=== PATIENT | female | born 1975 | race African-American/Black ===

== ENCOUNTER 2017-06-30 07:00 | Inpatient (IN) | payer BC ==
[2017-06-29 10:42] VITALS: BMI 54.5
[2017-06-30] MEDS ORDERED: PROPOFOL 20 ML ONE (08:00)
[2017-06-30] MEDS ORDERED: ROCURONIUM BROMIDE 50 MG/5 ML VIAL ONE ×2 (08:00→09:54)
[2017-06-30] MEDS ORDERED: fentaNYL CITRATE 250 MCG/5 ML VIAL ONE (08:02)
[2017-06-30] MEDS ORDERED: MIDAZOLAM HCL 2 MG/2 ML SINGLE DOSE VIAL ONE ×3 (08:02→08:35)
[2017-06-30] MEDS ORDERED: LIDOCAINE HCL/PF 2% SDV 5ML VIAL ONE (08:03)
[2017-06-30] MEDS ORDERED: KETOROLAC TROMETHAMINE 30 MG/1 ML VIAL ONE (08:04)
[2017-06-30] MEDS ORDERED: LIDOCAINE HCL 2% JELLY (5 ML/TUBE) ONE (08:04)
[2017-06-30] MEDS ORDERED: DEXAMETHASONE SOD PHOSPHATE 4 MG/1 ML VIAL ONE (08:04)
[2017-06-30] MEDS ORDERED: ONDANSETRON 4 MG/2 ML VIAL ONE ×2 (08:04→14:35)
[2017-06-30] MEDS ORDERED: ROPIVACAINE HCL 0.5% 30ML VIAL ONE (08:34)
[2017-06-30] MEDS ORDERED: DEXAMETHASONE SOD PHOSPHATE/PF 10 MG/ML SDV ONE (08:34)
--- NOTE | 2017-06-30 09:17 | HP ---
Past Medical History - Primary Care Physician PCP:: Eric Thakur - Admission Chief Complaint: pelvic pain, metrorrhagia, fibroid uterus History of Present Illness: 43 yo f with previous hx of tubo ovarian abscess , fibroid uterus with hx of chronic pelvic pain and metrorrhagia , requesting hysterectomy, possible BSO, risks of procedure discussed with patient in detail, ulternatives and no treatmene discussed in detail History Source: Patient Limitations to Obtaining History: No Limitations - Past Medical History Reproductive: Yes: Fibroids, PID, Polycystic Ovary Syndrome ...: 0 ...Para: 0 Heme/Onc: Yes: Anemia Endocrine: Yes: Diabetes Mellitus (on metformin) - Past Surgical History Hx Myomectomy: No Hx Transabdominal Cerclage: No - Smoking History Smoking history: Never smoked Have you smoked in the past 12 months: No - Alcohol/Substance Use Hx Alcohol Use: Yes (WINE) - Social History History of Recent Travel: No Home Medications - Allergies Allergies/Adverse Reactions: Allergies Allergy/AdvReac Type Severity Reaction Status Date / Time Penicillins Allergy Verified 04/30/14 13:32 UNSURE OTHER ANTIBIOTIC ? Allergy Intermediate PAIN AND Uncoded 06/29/17 10:45 FEVER - Home Medications Home Medications: Ambulatory Orders Metformin HCl [Glucophage -] 500 mg PO DAILY 04/30/14 Aspirin [ASA -] 325 mg PO PRN 06/29/17 Multivitamin [Poly-Vitamin] 1 each PO DAILY 06/29/17 Acetaminophen [Tylenol -] 650 mg PO Q4H 06/30/17 Review of Systems - Review of Systems Constitutional: reports: Weakness Eyes: reports: No Symptoms HENT: reports: No Symptoms Neck: reports: No Symptoms Cardiovascular: reports: No Symptoms Respiratory: reports: No Symptoms Gastrointestinal: reports: Abdominal Pain, Bloating Genitourinary: reports: Vaginal Bleeding Breasts: reports: No Symptoms Reported Musculoskeletal: reports: No Symptoms Integumentary: reports: No Symptoms Neurological: reports: No Symptoms Endocrine: reports: No Symptoms Hematology/Lymphatic: reports: No Symptoms Psychiatric: reports: No Symptoms 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 Vital Signs: Vital Signs Temperature 97.7 F 06/30/17 07:39 Pulse Rate 90 06/30/17 07:39 Respiratory Rate 20 06/30/17 07:39 Blood Pressure 139/94 06/30/17 07:39 O2 Sat by Pulse Oximetry (%) 100 06/30/17 07:39 Constitutional: Yes: Obese Eyes: Yes: WNL HENT: Yes: WNL Neck: Yes: WNL Cardiovascular: Yes: WNL Respiratory: Yes: WNL Gastrointestinal: Yes: Soft Renal/: Yes: WNL Pelvis: Yes: Mass External Genitalia: Yes: Normal Vaginal Exam: Yes: Normal Cervix: Yes: Normal Uterus: Yes: Enlarged, Lumpy, Tender Adnexa: Tender: Left, Right Breast(s): Yes: WNL Musculoskeletal: Yes: WNL Extremities: Yes: WNL Edema: No Integumentary: Yes: WNL Neurological: Yes: WNL ...Motor Strength: WNL Psychiatric: Yes: WNL Problem List - Problem (1) Pelvic pain Code(s): R10.2 - PELVIC AND PERINEAL PAIN (2) Metrorrhagia Code(s): N92.1 - EXCESSIVE AND FREQUENT MENSTRUATION WITH IRREGULAR CYCLE (3) Anemia Code(s): D64.9 - ANEMIA, UNSPECIFIED Qualifiers: Anemia type: iron deficiency Assessment/Plan admit for supracervical abdominal hysterectomy , possible BSO, rba discussed
[2017-06-30] MEDS ORDERED: ceFAZolin SODIUM 1 GM VIAL IVPB ONE ×2 (09:23→12:47)
[2017-06-30] MEDS ORDERED: LABETALOL HCL 5 MG/1 ML (100MG/20 ML VIAL) ONE (09:56)
[2017-06-30] MEDS ORDERED: DESFLURANE GAS 240 ML BOTTLE IH ONE (10:01)
[2017-06-30] MEDS ORDERED: TRANEXAMIC ACID 1000 MG/10 ML VIAL ONE (10:03)
[2017-06-30] MEDS ORDERED: METHYLENE BLUE 1% 10 MG/1 ML VIAL NR ONE (11:15)
[2017-06-30] MEDS ORDERED: ceFAZolin SODIUM 1 GM VIAL ONE (12:43)
[2017-06-30] MEDS ORDERED: SODIUM CHLORIDE 0.9% P/F 10 ML VIAL IJ ONE (12:43)
[2017-06-30] MEDS ORDERED: BACITRACIN 15 GM TUBE TOPICAL OINTMENT ONE (12:55)
[2017-06-30] MEDS ORDERED: BACITRACIN 15 GM TUBE TOPICAL OINTMENT TP ONE (13:00)
[2017-06-30] MEDS ORDERED: IBUPROFEN 600 MG TABLET (FP) PO PRN (13:09)
[2017-06-30] MEDS ORDERED: NEOSTIGMINE METHYLSULFATE 0.5 MG/ML - 10 ML MDV ONE (13:31)
[2017-06-30] MEDS: ELECTROLYTE-148 SOLN 1,000 ML IV SCH (13:50)
[2017-06-30] MEDS ORDERED: oxyCODONE HCL 5 MG TABLET PO PRN (14:05)
[2017-06-30] MEDS ORDERED: LACTATED RINGERS SOLUTION 1,000 ML IV SCH (14:15)
[2017-06-30] MEDS: IBUPROFEN 800 MG/8 ML IJ IVPB PRN ×2 (14:15→19:54)
[2017-06-30 14:29] LABS: MCH 26.2 pg (25.7-33.7); MCHC 31.5 g/dl (32.0-36.0); MEAN PLT VOLUME 8.3 fl (7.5-11.1); PLATELET COUNT 377 K/MM3 (134-434); RDW 15.1 % (11.6-15.6); WHITE BLOOD COUNT 16.5 K/mm3 (4.0-10.0)
[2017-06-30] MEDS: ONDANSETRON 4 MG/2 ML VIAL IVPUSH PRN ×2 (14:36→21:11)
--- NOTE | 2017-06-30 14:38 | PROC ---
Procedure Note Procedure: cystoscopy and bilateral retrograde pyelogram are normal
[2017-06-30 14:50] LABS: ANION GAP 4 (8-16); CALCIUM 7.9 mg/dL (8.5-10.1); CO2 27 mmol/L (21-32); CREATININE 0.7 mg/dL (0.55-1.02); GLUCOSE,RANDOM 178 mg/dL (74-106)
--- NOTE | 2017-06-30 14:59 | OP ---
DATE OF OPERATION: 06/30/2017 PREOPERATIVE DIAGNOSIS: Abdominal hysterectomy, concern about urinary injury. POSTOPERATIVE DIAGNOSIS: No evidence of urinary injury. PROCEDURE: Cystoscopy, bilateral retrograde pyelogram. SURGEON: Josué Lauren MD ANESTHESIA: General, Michael Joshi MD. DRAINS: Simeon catheter. PREOPERATIVE INDICATIONS: The patient is a 42-year-old female who underwent an abdominal hysterectomy. There were multiple adhesions throughout the abdomen. General surgical consultation was required. The consumer marketing specialist requested urology evaluation as well for fear of damage to the ureters or the bladder. DESCRIPTION OF OPERATION: After the general procedure was finished, the patient was placed in a frog-leg position. Groin was prepped and draped sterilely, and cystoscopy was performed. The bladder itself appeared to be normal and intact. There was an air bubble as expected at top of the bladder with infusion of fluid through the scope. The bladder held the fluid well. Again, no evidence of any sutures or perforation or leakage. No tumors or stones were seen either. The ureteral orifices were visualized. An open-ended catheter was placed up the left ureter. A retrograde pyelogram was performed which revealed a normal system with no obstruction and no extravasation. On the right side, this was done as well, and again, similarly, a normal system with no evidence of hydronephrosis or obstruction or extravasation was seen. The study was ultimately normal. Scope was removed, and a Simeon catheter was left in place. JOSUÉ LAUREN M.D. [id number]
--- NOTE | 2017-06-30 15:08 | OP ---
DATE OF OPERATION: 06/30/2017 PREOPERATIVE DIAGNOSIS: Extensive endometriosis, tubo-ovarian abscess with ovarian cyst, extensive lysis of adhesions of the tubes and ovaries to sigmoid colon and rectum as well as to the retroperitoneum, bladder, and appendix. SURGEON: Lorene Bean MD VENDOR ANALYST: Eric Thakur MD ANESTHESIA: General anesthesia. OPERATIVE DESCRIPTION: I was called in for consultation intraoperatively, by Dr. Thakur while he was doing hysterectomy for severe endometriosis and tubo- ovarian abscesses and fibroid uterus. When I was involved the abdomen was open. The findings were explained to me by Celeste Ellis , and the anatomy oriented. On examination, there were extensive adhesions of the sigmoid colon to the posterior aspect of the pelvic organs, in the pelvis. The proximal rectum was also densely adherent to the pelvic organs. There were large ovarian cysts above, anterior and lateral to this. The bilateral tubo-ovarian masses were adherent also to the lateral abdominal wall, and retroperitoneum. There were adhesions to the bladder as well. The urinary bladder was lysed and retracted anteriorly. The rectosigmoid was densely adherent to the retroperitoneum as well as to the posterior aspect of the uterus and the tubo-ovarian cyst. This was carefully lysed using sharp and blunt dissection, as well as using electrocautery,and the LigaSure. The sigmoid colon was then freed from the pelvic organs and retracted cephalad. Further, the peritoneal and fibrous peel, was lifted off the tuboovarian inflammatory mass, starting from the right ovary, and this was carefully mobilized medially, towards the uterus. There were dense adhesions of the tubes and ovaries to the lateral and posterior abdominal wall peritoneum. This was lysed with care, not to damage any important structures. Ureters were identified and left intact. Methylene blue was injected during the procedure, which was evident from the color of the urine, in the bladder. There was a long thin strand of fibrotic cord like structure,which was adherent to the ovary. This was later found to be the tip of the appendix. An appendectomy was later performed. After mobilizing the right ovary and the tubes all the way down, behind the uterus and the cervix, attention was carried to the left ovary and tube, which was also very distended and thick walled. It was also adherent to the lateral pelvic wall as well as the retroperitoneum. This was carefully lysed, and from its surrounding structures and attachments, again with sharp and blunt dissection, as well as using the LigaSure and the electrocautery. All of the tubo-ovarian structures as well as the infundibulum and the tubes were brought to the center of the abdomen, where the uterus and the cervix was then dissected, from adjacent organs, as well as the rectum posteriorly and the bladder anteriorly. The hysterectomy was then performed by Dr. Thakur. At the completion, it was noted that the little thin strand that was connected to the ovary was the appendix. An appendectomy was then performed by placing 2 ligatures of 2 0 viryl, at the base of the appendix and dividing the appendix, distal to the ligature. The specimen was sent to Pathology. The cecum, terminal ileum, descending colon, and sigmoid colon were all normal. Hemostasis was satisfactory at the completion of the procedure. The rest of the procedure including closure of the abdomen was done by Dr. Thakur. The urologist was then called to do cystoscopy and retrograde ureterography. LORENE BEAN M.D. CC: MD MADELINE [id number] MTDD
[2017-06-30] MEDS: oxyCODONE HCL 5 MG TABLET PO PRN (17:15)
--- NOTE | 2017-06-30 17:45 | OP ---
Operative Note - Note: Operative Date: 06/30/17 Pre-Operative Diagnosis: Tuboovarian abscess, endometriosis. Adhesions Operation: Intraoperative consultation. Extensive lysis of pelvic adhesions, ovariiesm , uterus, and retreoperitomeum ,. lysis of colorectal adhesions, ( intestinal adhesions),. appendectomy. Findings: Extensive adhesions, of tuboovarian mass to the rectosigmoid, retroperitoneum, and alteral pelvic wall and bladder. Post-Operative Diagnosis: Other (Extensive adhesions of tuboovarian mass to retroperitoneum, lateral pelvis wall, rectosigmoid and appendix.) Surgeon: Emigdio Bedoya Pocket And Pulley Machine Operator: Eric Thakur Anesthesia: General Specimens Removed: Appendix Estimated Blood Loss (mls): 100 Operative Report Dictated: Yes
[2017-06-30] MEDS ORDERED: CEFAZOLIN 2 GM in DEXTROSE 5%-WATER - 100 ML IVPB SCH (18:00)
[2017-06-30] MEDS ORDERED: ceFAZolin 2 GRAM PREMIX BAG IVPB SCH (18:00)
--- NOTE | 2017-06-30 20:32 | OP ---
DATE OF OPERATION: 06/30/2017 PREOPERATIVE DIAGNOSIS: Metrorrhagia, pelvic pain, history of tuboovarian abscess and a fibroid uterus, and anemia. POSTOPERATIVE DIAGNOSIS: Metrorrhagia, pelvic pain, history of tuboovarian abscess and a fibroid uterus, and anemia. Dense pelvic and bowel adhesions and bilateral endometrioma of the ovaries and the severe pelvic endometriosis, class 4. SURGEON: Mike Cali M.D. PURCHASING MANAGER/SALES: Theresa Coleman M.D. OPERATING CONSULTATION: Rand Bedoya M.D., and Josué Melgoza M.D. DESCRIPTION OF PROCEDURE: Patient was taken to operating room with adequate anesthesia. Abdomen and perineum were prepped and draped. Pfannenstiel skin incision was made. Incision extended with cautery to the fascia, and hemostasis was established. Fascia was exposed, and fascia was cut transversely with cautery. Muscles were retracted and then peritoneum was exposed, and incised with a Metzenbaum scissors. The abdominal cavity was entered. At this time, patient was placed in a Trendelenburg position, and bowels were packed away. Examination of the pelvic organs showed the uterus was not visible, it was covered by a thick bladder peritoneum and also was covered on the top by portion of the rectosigmoid colon. Both ovaries were matted against the pelvic sidewall with the swelling retroperitoneum, and the cul-de-sac was obliterated by rectum attaching to the posterior wall of the uterus, and also noted that there was rectosigmoid was densely adherent to the retroperitoneum. At this time, because of the dense pelvic adhesions, Dr. Bedoya was consulted intraoperatively for lysis of pelvic adhesions. Because of the dense adhesions, not enough exposure, the muscles were cut with the cautery transversely and exposure was made possible. Then Dr. Bedoya lysed the rectosigmoid colon from the uterus, and then it was noted that she had the 2 large endometrioma which started oozing dark old blood from the ovaries. Ovaries at this time still were not visualized because they were covered with the thick wall, and they retroperitoneal, and Dr. Bedoya identified both infundibulopelvic ligament. Ureter was visualized, and palpated. Then infundibulopelvic ligament was grasped with a right angle clamp bilaterally and cut, and the clamps replaced with 0 Vicryl ties bilaterally. At this time first the right ovary was dissected meticulously with sharp and blunt dissection and with a Ligasure cautery and released from the pelvic sidewall. At this time, the uterus was covered by the bladder peritoneum which was opened with Metzenbaum scissors and then the bladder was pushed down and a portion of the uterus was exposed. The other part of the uterus on the left side also was covered by the rectosigmoid and also rectosigmoid covering the left ovary. Dr. Bedoya again lysed these adhesions, and then the infundibulopelvic ligament on the left side was identified. Ureter was visualized on the left side, infundibulopelvic ligament was grasped with a right angle clamp, cut, and the clamp replaced with 2-0 Vicryl free ties, and then ovaries were meticulously from the posterior, which they were matted to the posterior cul-de-sac, were meticulously lysed, and ovaries were mobilized and brought to the surface. Chocolate cyst was identified in both ovaries. At this time uterine artery was identified bilaterally, clamped with Samara clamp, cut, and clamp replaced with 0 Vicryl suture bilaterally. Then the pelvic cervical area was clamped with Samara clamp, cut, and the clamp replaced with 0 Vicryl suture bilaterally, and then the specimen was removed above the cervix. Cervix was grasped with 2 Samara clamps and hemostasis was established with interrupted suture of the 0 Vicryl. There was several areas of oozing from the posterior peritoneum which was grasped with the right angle clamp and tied with 2-0 plain. Hemostasis was established. Then pelvic cavity several times irrigated. No active bleeding was seen. Methylene blue was given, and there was no extravasation of the dye into the pelvic area. Bladder and ureter appeared to be intact. At this time, all the lap, sponge, and instrument counts were correct. Then peritoneum was closed with 0 Vicryl continuous suture, muscles were brought together and sutured with 0 Vicryl, fascia was closed with 0 Vicryl continuous suture, subcutaneous fat interrupted suture of 0 Vicryl, and the skin was closed with mina. Also intraoperative consult was obtained with Dr. Melgoza, urologist, for cystoscopy and retrograde cystogram, and which appeared that bladder was intact and both ureters were entry to the bladder was visualized, and patency was confirmed. Then after the procedure was discontinued by Dr. Melgoza, patient was brought to recovery room in good condition. MIKE CALI M.D. [id number]
[2017-06-30] MEDS ORDERED: HYDROmorphone *PCA* 10MG/50ML DISP.SYRIN PCA SCH (21:15)
[2017-06-30] MEDS ORDERED: HYDROmorphone *PCA* 10MG/50ML DISP.SYRIN PCA ONE (22:17)
[2017-07-01] MEDS: ELECTROLYTE-148 SOLN 1,000 ML IV SCH ×3 (01:34→15:41)
[2017-07-01] MEDS: CEFAZOLIN 2 GM/D5W 2 GM/50 ML ML IVPB SCH ×3 (01:35→17:49)
[2017-07-01] MEDS: metFORMIN HCL 500 MG TABLET (FP) PO SCH (06:32)
[2017-07-01 07:34] LABS: BASOPHIL 0.3 % (0-2.0); MCH 27.2 pg (25.7-33.7); MCHC 32.1 g/dl (32.0-36.0); MEAN CELL VOLUME 84.6 fl (80-96); MEAN PLT VOLUME 8.9 fl (7.5-11.1); NEUTROPHILS 79.2 % (42.8-82.8); PLATELET COUNT 326 K/MM3 (134-434); RDW 14.9 % (11.6-15.6); WHITE BLOOD COUNT 13.6 K/mm3 (4.0-10.0)
[2017-07-01 08:30] LABS: ALBUMIN 2.8 g/dl (3.4-5.0); ALK PHOS 34 U/L (45-117); ANION GAP 6 (8-16); BILIRUBIN,TOTAL 0.5 mg/dL (0.2-1.0); CALCIUM 8.2 mg/dL (8.5-10.1); CO2 27 mmol/L (21-32); CREATININE 0.7 mg/dL (0.55-1.02); GLUCOSE,RANDOM 106 mg/dL (74-106); SGOT/AST 11 U/L (15-37); SGPT/ALT 12 U/L (12-78)
[2017-07-01] MEDS ORDERED: BISACODYL 5 MG TABLET.DR (FP) PO ONE (09:00)
--- NOTE | 2017-07-01 10:02 | PN ---
Progress Note (short form) - Note Progress Note: Anesthesia Post op Pt seen and examined S:alert and awake O; Vital Signs Temperature 99.7 F H 07/01/17 06:40 Pulse Rate 95 H 07/01/17 06:40 Respiratory Rate 20 07/01/17 06:40 Blood Pressure 121/72 07/01/17 06:40 O2 Sat by Pulse Oximetry (%) 100 06/30/17 21:00 CBC, BMP 07/01/17 06:30 07/01/17 06:30 A/P: Current Active Problems Anemia (Acute) Metrorrhagia (Acute) Pelvic pain (Acute) s/p Hysterectomy Doing well post op Continue current indy Griffin MD
[2017-07-01] MEDS ORDERED: PT OWN MED DRAWER 7, Y5N ONE (10:20)
[2017-07-01] MEDS: MULTIVITAMINS (DAILY MVI) TABLET (FP) PO SCH (10:31)
[2017-07-01] MEDS: SIMETHICONE 80 MG TAB.CHEW (FP) PO PRN (10:31)
[2017-07-01] MEDS: ENOXAPARIN NA (PORCINE) 40 MG/0.4 ML DISP.SYRIN SQ SCH (10:31)
--- NOTE | 2017-07-01 11:29 | PN ---
Progress Note, Physician - Current Medication List Current Medications: Active Medications Enoxaparin Sodium (Lovenox -) 40 mg SQ DAILY [facility] Last Admin: 07/01/17 10:31 Dose: 40 mg Fentanyl (Sublimaze Injection -) 50 mcg IVPUSH [id number] PRN PRN Reason: PAIN Last Admin: 06/30/17 14:50 Dose: 50 mcg Parenteral Electrolytes (Plasma-Lyte 148 -) 1,000 mls @ 125 mls/hr IV ASDIR [facility] Last Admin: 07/01/17 10:40 Dose: 125 mls/hr Cefazolin Sodium/Dextrose (Ancef 2 Gm Premixed Ivpb -) 2 gm in 50 mls @ 100 mls /hr IVPB Q8H-IV KIT Stop: 07/01/17 20:29 Last Admin: 07/01/17 10:31 Dose: 100 mls/hr Ibuprofen (Motrin -) 600 mg PO Q6H PRN PRN Reason: FEVER Ibuprofen (Caldolor Injection -) 800 mg IVPB Q6H PRN PRN Reason: FEVER Last Admin: 06/30/17 19:54 Dose: 800 mg Metformin HCl (Glucophage -) 500 mg PO DAILY@0700 [facility] Last Admin: 07/01/17 06:32 Dose: Not Given Multivitamins/Minerals/Vitamin C (Tab-A-Vit -) 1 tab PO DAILY [facility] Last Admin: 07/01/17 10:31 Dose: 1 tab Ondansetron HCl (Zofran Injection) 4 mg IVPUSH Q6H PRN PRN Reason: NAUSEA Last Admin: 06/30/17 21:11 Dose: 4 mg Oxycodone HCl (Roxicodone -) 10 mg PO Q4H PRN PRN Reason: PAIN LEVEL 6-10 Last Admin: 06/30/17 17:15 Dose: 10 mg Oxycodone HCl (Roxicodone -) 5 mg PO Q4H PRN PRN Reason: MILD PAIN Simethicone (Mylicon -) 80 mg PO Q4H PRN PRN Reason: GAS Last Admin: 07/01/17 10:31 Dose: 80 mg - Objective Vital Signs: Vital Signs Temperature 99.7 F H 07/01/17 06:40 Pulse Rate 95 H 07/01/17 06:40 Respiratory Rate 20 07/01/17 06:40 Blood Pressure 121/72 07/01/17 06:40 O2 Sat by Pulse Oximetry (%) 100 06/30/17 21:00 Labs: CBC, BMP 07/01/17 06:30 07/01/17 06:30 Assessment/Plan Surgery: Patient is sesn. She is out of bed , talking, comfortable. I introduced myself, and appraised her of my involvement at the surgery, and the findings of extensive adhesions in the pelvis needing adhesiolysis, and of her appendectomy. She is afebrile, and on oral diet. Hematocrit 25[place] [id number]. Continue antibiotics.
--- NOTE | 2017-07-01 15:52 | PATH ---
Surgical Pathology Report Patient Name: JASPAL CANO [facility]. Rec. #: [id number] /Age/Gender: 1975 (Age: 42) / F Account: [id number] Location: [address] [place] [address] Taken: 06/30/2017 Received: 06/30/2017 Reported: 07/01/2017 Physicians: Eric Thakur M.D. Specimen(s) Received A: UTERUS WITH BILATERAL FALLOPIAN TUBES AND OVARIES B: APPENDIX Clinical History Preoperative diagnosis: Fibroid uterus, other ovarian cysts Postoperative diagnosis: Same Final Diagnosis A. UTERUS WITH BILATERAL FALLOPIAN TUBES AND OVARIES, SUPRACERVICAL HYSTERECTOMY AND BILATERAL SALPINGO-OOPHERECTOMY: UTERUS, 130 GRAMS, WITH ADENOMYOSIS, LEIOMYOMATA, AND PROLIFERATIVE ENDOMETRIUM. LEFT FALLOPIAN TUBE WITH ENDOMETRIOSIS. LEFT OVARY WITH ENDOMETRIOMA. RIGHT FALLOPIAN TUBE WITH ENDOMETRIOSIS. RIGHT OVARY WITH HEMORRHAGIC LUTEAL CYST, AND ENDOMETRIOSIS. B. APPENDIX, APPENDECTOMY: BENIGN APPENDIX WITH EXTENSIVE FIBROUS OBLITERATION OF THE LUMEN Electronically Signed Arnel Morelos M.D. Gross Description A. Received in formalin labeled "bilateral fallopian tubes, bilateral ovaries and uterus," is a 130 g supracervically amputated uterus with bilateral attached fallopian tubes and ovaries. The specimen measures 7.7 cm from superior to inferior, 5.0 cm from left to right and 5.0 cm from anterior to posterior. The serosa is napier-pink with focal defects and adhesions. The endometrial cavity measures 4.3 cm in length and 2.2 cm from cornu to cornu. The endometrium is napier-red and averages 0.2 cm in thickness. The myometrium displays multiple intramural nodules, measuring up to 1.9 cm in greatest dimension. The remaining myometrium is napier-pink with focal hemorrhagic cysts and averages 2.4 cm in thickness. The left fimbriated fallopian tube is brown-purple with dense tubal ovarian adhesions and measures 4 cm in length. Sectioning reveals a dilated, hemorrhagic lumen. The attached left ovary measures 4.5 x 4.0 x 2.1 cm. The outer surface is rodriguez purple with fibrous adhesions and a focal defect. Sectioning reveals a 2.2 cm in greatest dimension hemorrhagic cyst. The remaining ovarian parenchyma is napier-pink. The right fimbriated fallopian tube measures 3.5 cm in length. The outer surface is napier-pink, convoluted with dense tubal ovarian adhesions. Sectioning reveals a dilated, hemorrhagic lumen. The attached right ovary measures 4.0 x 3.1 x 2.0 cm. Sectioning reveals a 1.9 cm in greatest dimension serous cyst as well as a 1.8 cm in greatest dimension hemorrhagic cyst. The remaining ovarian parenchyma is napier-yellow and smooth. Early Childhood Services Coordinator sections are submitted in 20 cassettes as follows: 1-cervical stump margin of resection; 1-2-wavmrvgf endomyometrium; 9-1-ouhokzbed endomyometrium; 7-6-kduleykoni myometrium with intramural nodules and hemorrhagic cysts; 9-left fallopian tube fimbria; 24-mrytb-qymuzoiu of left fallopian tube; 11-12-left ovarian cyst; 76-33-vglbfbrgfi left ovary; 15-right fallopian tube fimbria; 70-rekga-iqxmhmzp of right fallopian tube; 17-right ovarian hemorrhagic cyst; 18-right ovarian serous cyst; 51-63-pyumaushhr right ovary. B. Received in formalin, labeled "appendix," is a 10 cm. in length possible vermiform appendix with no attached fat. The serosa is napier smooth. Sectioning reveals a focally hemorrhagic lumen. The wall of the appendix averages 0.1 cm. in thickness. The distal tip and medical detail representative cross sections are submitted in one cassette. 06/30/2017 [facility]06/30/2017
--- NOTE | 2017-07-01 19:27 | PN ---
Progress Note (short form) - Note Progress Note: pod 1 doing well, ambulating, no dizziness CBC, BMP 07/01/17 06:30 07/01/17 06:30 Last Vital Signs Temp Pulse Resp BP Pulse Ox 98.2 F 100 H 21 123/69 98 07/01/17 14:00 07/01/17 14:00 07/01/17 14:00 07/01/17 14:00 07/01/17 09:00 abdomen soft, no distension, no cva, BS decreased but present incision dry no vaginal bleeding no calf tenderness impression afebrile, anemia asymptomatic will start on iron when on regular diet repeat cbc in am Problem List - Problems (1) Pelvic pain Code(s): R10.2 - PELVIC AND PERINEAL PAIN (2) Metrorrhagia Code(s): N92.1 - EXCESSIVE AND FREQUENT MENSTRUATION WITH IRREGULAR CYCLE (3) Anemia Code(s): D64.9 - ANEMIA, UNSPECIFIED Qualifiers: Anemia type: iron deficiency
[2017-07-02] MEDS: metFORMIN HCL 500 MG TABLET (FP) PO SCH (06:24)
[2017-07-02] MEDS: IBUPROFEN 800 MG/8 ML IJ IVPB PRN (06:26)
[2017-07-02 08:31] LABS: BASOPHIL 0.7 % (0-2.0); EOSINOPHIL 0.9 % (0-4.5); MCH 27.5 pg (25.7-33.7); MCHC 32.5 g/dl (32.0-36.0); MEAN CELL VOLUME 84.5 fl (80-96); MEAN PLT VOLUME 8.6 fl (7.5-11.1); NEUTROPHILS 74.1 % (42.8-82.8); PLATELET COUNT 329 K/MM3 (134-434); RDW 15.4 % (11.6-15.6)
[2017-07-02 08:45] LABS: ALBUMIN 2.9 g/dl (3.4-5.0); ALK PHOS 39 U/L (45-117); ANION GAP 5 (8-16); BILIRUBIN,TOTAL 0.6 mg/dL (0.2-1.0); CALCIUM 7.8 mg/dL (8.5-10.1); CO2 26 mmol/L (21-32); CREATININE 0.8 mg/dL (0.55-1.02); GLUCOSE,RANDOM 125 mg/dL (74-106); SGOT/AST 20 U/L (15-37); SGPT/ALT 13 U/L (12-78); TOT PROT 6.3 g/dl (6.4-8.2)
[2017-07-02] MEDS: MULTIVITAMINS (DAILY MVI) TABLET (FP) PO SCH (09:59)
[2017-07-02] MEDS: ENOXAPARIN NA (PORCINE) 40 MG/0.4 ML DISP.SYRIN SQ SCH (09:59)
[2017-07-02] MEDS: ELECTROLYTE-148 SOLN 1,000 ML IV SCH (16:48)
[2017-07-02] MEDS: oxyCODONE HCL 5 MG TABLET PO PRN (21:27)
[2017-07-02] MEDS: SIMETHICONE 80 MG TAB.CHEW (FP) PO PRN (21:29)
--- NOTE | 2017-07-02 21:43 | PN ---
Progress Note (short form) - Note Progress Note: pod2 had 101 f temp last night , afebrile today, had BM, has low abdominal pain CBC, BMP 07/02/17 08:00 07/02/17 08:00 Last Vital Signs Temp Pulse Resp BP Pulse Ox 98 F 96 H 20 130/80 98 07/02/17 18:56 07/02/17 18:56 07/02/17 18:56 07/02/17 18:56 07/02/17 09:00 abdomen soft, no distension. no cva incision dry, clean mild suprapubic tenderness impression afebrile now, elevated wbc, r/o atelectasis plan encouraged deep breathing, ambulate, repeat cbc in am if spikes will do septic work up observation, if afbrile d/c home in am Problem List - Problems (1) Pelvic pain Code(s): R10.2 - PELVIC AND PERINEAL PAIN (2) Metrorrhagia Code(s): N92.1 - EXCESSIVE AND FREQUENT MENSTRUATION WITH IRREGULAR CYCLE (3) Anemia Code(s): D64.9 - ANEMIA, UNSPECIFIED Qualifiers: Anemia type: iron deficiency
[2017-07-03] MEDS: metFORMIN HCL 500 MG TABLET (FP) PO SCH (06:20)
[2017-07-03 09:06] LABS: BASOPHIL 0.5 % (0-2.0); EOSINOPHIL 1.2 % (0-4.5); MCH 27.1 pg (25.7-33.7); MCHC 31.7 g/dl (32.0-36.0); MEAN CELL VOLUME 85.4 fl (80-96); MEAN PLT VOLUME 8.5 fl (7.5-11.1); NEUTROPHILS 69.4 % (42.8-82.8); PLATELET COUNT 313 K/MM3 (134-434); RDW 15.1 % (11.6-15.6)
[2017-07-03] MEDS: ENOXAPARIN NA (PORCINE) 40 MG/0.4 ML DISP.SYRIN SQ SCH (10:06)
[2017-07-03] MEDS: MULTIVITAMINS (DAILY MVI) TABLET (FP) PO SCH (10:06)
--- NOTE | 2017-07-03 10:26 | DS ---
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 Vital Signs: Vital Signs Temperature 99.4 F 07/03/17 05:30 Pulse Rate 98 H 07/03/17 05:30 Respiratory Rate 20 07/03/17 05:30 Blood Pressure 124/73 07/03/17 05:30 O2 Sat by Pulse Oximetry (%) 98 07/02/17 22:00 Constitutional: Yes: Well Nourished, No Distress, Calm Eyes: Yes: WNL, Conjunctiva Clear, EOM Intact HENT: Yes: WNL, Atraumatic, Normocephalic Neck: Yes: WNL, Supple, Trachea Midline Cardiovascular: Yes: WNL, Regular Rate and Rhythm Respiratory: Yes: WNL, Regular, CTA Bilaterally Gastrointestinal: Yes: WNL ...Rectal Exam: Yes: WNL Renal/: Yes: WNL External Genitalia: Yes: Normal Breast(s): Yes: WNL Musculoskeletal: Yes: WNL Extremities: Yes: WNL Edema: No Integumentary: Yes: WNL Wound/Incision: Yes: Clean/Dry, Well Approximated, [place] Intact Neurological: Yes: WNL, Alert, Oriented ...Motor Strength: WNL Psychiatric: Yes: WNL, Alert, Oriented Labs: CBC, BMP 07/03/17 08:45 07/02/17 08:00 Discharge Summary Reason For Visit: FIBROID UTERUS/OTHER OVARIAN CYSTS Current Active Problems Anemia (Acute) Metrorrhagia (Acute) Pelvic pain (Acute) Condition: Good - Instructions Diet, Activity, Other Instructions: regular diet, no intercourse, if pain, fever, dizziness,headache, call md, follow up office visit 1 week, Referrals: Eric Thakur MD [Staff Physician] - Disposition: HOME - Home Medications Comprehensive Discharge Medication List: Ambulatory Orders Metformin HCl [Glucophage -] 500 mg PO DAILY 04/30/14 Aspirin [ASA -] 325 mg PO PRN 06/29/17 Multivitamin [Poly-Vitamin] 1 each PO DAILY 06/29/17 Acetaminophen [Tylenol -] 650 mg PO Q4H 06/30/17 Ibuprofen [Motrin -] 600 mg PO QID #28 tablet 07/02/17 Ferrous Sulfate [Feosol] 325 mg PO BID #60 tablet 07/03/17
[2017-07-03 11:01] VITALS: BP 130/65; PULSE 104; TEMP 99.2
[2017-07-03 15:27] LABS: BASOPHIL 1.3 % (0-2.0); EOSINOPHIL 1.3 % (0-4.5); MCH 27.2 pg (25.7-33.7); MCHC 31.8 g/dl (32.0-36.0); MEAN CELL VOLUME 85.7 fl (80-96); MEAN PLT VOLUME 11.6 fl (7.5-11.1); NEUTROPHILS 63.5 % (42.8-82.8); PLATELET COUNT 82 K/MM3 (134-434); RDW 15.8 % (11.6-15.6); WHITE BLOOD COUNT 10.7 K/mm3 (4.0-10.0)
== END 2017-07-03 11:20 | disposition home or self-care (01) | DRG 742 ==
LOC: JSAMEDAYSX 07:00 → EDSTATUS 09:00 → J6S 16:39
PROVIDERS: ADMIT Obstetrics & Gynecology; ATTEND Obstetrics & Gynecology
PROC: 0DTJ0ZZ Resection of Appendix, Open Approach (ICD-10-PCS; 2017-06-30)
PROC: 0DNW0ZZ Release Peritoneum, Open Approach (ICD-10-PCS; 2017-06-30)
PROC: 0DNN0ZZ Release Sigmoid Colon, Open Approach (ICD-10-PCS; 2017-06-30)
PROC: 0TJB8ZZ Inspection of Bladder, Via Natural or Artificial Opening Endoscopic (ICD-10-PCS; 2017-06-30)
PROC: BT14ZZZ Fluoroscopy of Kidneys, Ureters and Bladder (ICD-10-PCS; 2017-06-30)
PROC: 0UT90ZL Resection of Uterus, Supracervical, Open Approach (ICD-10-PCS; principal; 2017-06-30 09:00)
PROC: 0UT70ZZ Resection of Bilateral Fallopian Tubes, Open Approach (ICD-10-PCS; 2017-06-30 09:00)
PROC: 0UT20ZZ Resection of Bilateral Ovaries, Open Approach (ICD-10-PCS; 2017-06-30 09:00)
DX: D25.9 Leiomyoma of uterus, unspecified (principal); Z68.43 Body mass index [BMI] 50.0-59.9, adult; N92.1 Excessive and frequent menstruation with irregular cycle; N70.93 Salpingitis and oophoritis, unspecified; N73.6 Female pelvic peritoneal adhesions (postinfective); N73.8 Other specified female pelvic inflammatory diseases; E28.2 Polycystic ovarian syndrome; E11.9 Type 2 diabetes mellitus without complications; D50.8 Other iron deficiency anemias; K36 Other appendicitis; E66.01 Morbid (severe) obesity due to excess calories; Z79.84 Long term (current) use of oral hypoglycemic drugs
CPT/HCPCS: 36415; 76000-TC; 80048; 80053; 84703; 85025; 85027; 86850; 86900; 86901; 86922; 88304-TC; 88307-TC; 94010; 94760